=== PATIENT | male | born 1960 | race Asian ===

== ENCOUNTER 2024-10-18 14:45 | Inpatient (IN) | payer BC, MEDICARE, SELFPAY ==
[2024-10-18] VITALS (9 sets, daily range): BP systolic 103–126; BP diastolic 65–82; BMI 25.7; BMI 25.3
--- NOTE | 2024-10-18 09:57 | ED.GENMED ---
History of Present Illness
General
Chief Complaint: Rectal Bleeding
Source: patient and spouse
Exam Limitations: none
Time Seen by Provider: 10/18/24 09:48
History of Present Illness
History of Present Illness:
See MDM
Past History
Past History
ED Past Medical History: None
ED Past Surgical History: None
Social History
Tobacco: Non-smoker
Alcohol: None
Phy Exam
Physical Exam
Physical Exam:
See MDM
Course
Orders/Labs/Results
Orders:
Orders
10/18/24 09:56
IV Insert/Care/Rem.- Treatment PRN
Pantoprazole 80 mg/100 ml Nss [Protonix] 80 mg in 100 ml IV NOW
Pantoprazole [Protonix IV] 80 mg IV NOW STA
10/18/24 09:57
0.9% Sodium Chloride 1000 ml [Nss] 1,000 ml IV BOLUS
10/18/24 10:02
Type+Screen Urgent
Complete Blood Count/With Diff Urgent
Comprehensive Metabolic Panel Urgent
Lipase Urgent
PTT Urgent
Prothrombin Time Urgent
10/18/24 10:18
ABO2 Urgent
BBK Wristband Number:
Associate notified that ABO2 has been ordered: ATIFF-ER
Date: 10/18/24
Time: 10:09
Shank Cutter ID: [id number]
Abnormal Lab Results
10/18/24
10:02
RBC 4.04 L 10^6/uL
(4.70-6.10)
Hgb 12.8 L g/dL
(13.0-18.0)
Hct 38.3 L %
(39.0-52.0)
MCV 94.8 H fL
(80.0-94.0)
MCH 31.7 H pg
(27.0-31.0)
MPV 10.6 H fL
(7.4-10.4)
Neutrophils % 78.2 H %
(42.2-75.2)
Lymphocytes % 17.0 L %
(20.5-51.1)
Chloride 111 H mmol/L
(98-107)
BUN 41 H mg/dl
(9-20)
Glucose 175 H mg/dl
(70-99)
10/18/24 10:02
10/18/24 10:02
Vital Signs
Initial and Last Documented VS:
Initial Vital Signs
Temp Pulse Resp BP Pulse Ox
97.5 F 66 18 126/82 98
10/18/24 09:37 10/18/24 09:37 10/18/24 09:37 10/18/24 09:37 10/18/24 09:37
Last Documented Vital Signs
Temp Pulse Resp BP Pulse Ox
97.5 F 65 22 111/69 100
10/18/24 09:37 10/18/24 10:00 10/18/24 10:00 10/18/24 10:00 10/18/24 10:00
MDM/Problems Addressed
Differential Diagnosis Includes:
Note:
CHIEF COMPLAINT(S)
Dark stools
HISTORY OF PRESENT ILLNESS
The patient is a 64-year-old male presenting with approximately three days of dark stools. The patient denies abd pain but complains of feeling weak and fatigued. There is no history of previous bleeding, and the patient is not on any blood
thinners. The patient engaged in significant exercise in the heat two days prior, which may have contributed to his symptoms. He denies recent use of Pepto-Bismol or iron supplements. A rectal exam was performed, which confirmed melena. Vital signs
are stable, and the patient is not taking any routine medications other than seasonal allergies, which were not specified. The patient drinks alcohol but not excessively.
PHYSICAL EXAM
General: Well appearing and non-toxic
HEENT: protecting airway
Neck: appears supple
CV: No evidence of cyanosis
Resp: No accessory muscle use
Abd: Non-distended. Soft nontender
Rectal: Melanotic stool that is guaiac positive
Extremities: No deformities
Neuro: alert
Psych: Normal affect
Skin: Intact
PLAN
The plan includes initiating a proton pump inhibitor, such as pantoprazole, to reduce stomach acid production given the likely upper gastrointestinal source of bleeding. The patient will be admitted overnight for further observation and consultation
with the GI team. A schedule for endoscopy will be arranged to evaluate the source and extent of bleeding. In the meantime, the patient is to remain NPO (nothing by mouth) and receive intravenous fluids. Blood work will be conducted to assess for
anemia, and decisions regarding the timing of the endoscopy will be based on these results.
DIFFERENTIAL DIAGNOSIS
The Differential Diagnosis includes, in no particular order and is not limited to:
1. Upper gastrointestinal bleed
2. Gastric ulcer
3. Duodenal ulcer
4. Esophageal varices
5. Viviana-Castillo tear
6. Gastritis
7. Peptic ulcer disease
8. Medication-induced gastrointestinal bleeding
9. Hemorrhagic gastritis
10. Esophagitis
DISPOSITION
The patient was admitted to the hospital service for overnight observation and management in consultation with the gastroenterology team.
MEDICATION RECONCILIATION
Prescribed pantoprazole as a PPI to reduce stomach acid production and manage potential GI bleeding.
MEDICAL DECISION MAKING
1. Number & Complexity of Problems: Differential diagnosis considered includes an upper gastrointestinal bleed potentially due to a gastric or duodenal ulcer, among other causes such as esophageal varices, peptic ulcer disease, and others listed.
2. Data Reviewed: A hemoglobin lab value was reviewed, showing stability at 12.8, impacting decision-making regarding the patients management plan.
3. Risk: Admission and observation were deemed necessary given the presence of GI bleeding, although vitals were stable, requiring hospital-based care to manage symptom control and further investigate through endoscopy.
*Pulse Oximetry
SaO2: 98
Patient hypoxic: no
*Critical Care Note
Total Time (30-74mins, 75-104mins- exclusive of procedures): 33 min
comment:
The high probability of a clinically significant, sudden or life threatening deterioration of the GI system(s) required my full and direct attention, intervention and personal management. The aggregate critical care time was 33 minutes. This time is
in addition to time spent performing reported procedures but includes the following:
[x] Data Review and interpretation
[x] Patient assessment and monitoring of vital signs
[x] Documentation
[x] Medication orders and management
ED Attending Note
-
Portions of this chart may have been created with voice recognition software.� Occasional wrong word or��sound alike� substitutions may have occurred due to the inherent limitations of voice recognition software.
Discharge Plan
Departure
Patient Disposition: Admit
Date of Disposition: 10/18/24
Time of Disposition: 10:28
Admit to: Med/Surg
Presentation/result/management discussed w/ accepting MD/DO: Hospitalist
Discharge Problem:
Acute upper GI bleed
Referrals:
Stephen Arana MD [Family Provider, Family Practice]
Interventions
Interventions:
*Risk Screen - Suicide Last Done: 10/18/24 09:52
*General Assessment Last Done: 10/18/24 09:52
*Neglect/Abuse Screening Last Done: 10/18/24 09:52
*ED- Fall Risk Assessment Last Done: 10/18/24 09:52
*ED COVID-19 Vaccine History Last Done: 10/18/24 09:52
YE-Qbcqge-Xkeluuoyxp Assessment Last Done: 10/18/24 09:52
ED- Cardiac Assessment Last Done: 10/18/24 09:52
ED- Pulmonary Assessment Last Done: 10/18/24 09:52
Discharge Date and Time
Print Language: YORUBA
[2024-10-18 10:11] LABS: % Basophils 0.4 % (0-2); % Eosinophils 1.1 % (0-6); % Immature Granulocytes 0.4 % (0-0.5); % Monocytes 2.9 % (1.7-9.3); % Neutrophils 78.2 % (42.2-75.2); Absolute Eosinophils 0.1 10^3/uL (0-0.7); Absolute Lymphocytes 1.2 10^3/uL (1.2-3.4); Absolute Monocytes 0.2 10^3/uL (0.1-0.6); Absolute Neutrophils 5.7 10^3/uL (1.4-6.5); Hematocrit 38.3 % (39.0-52.0); Hemoglobin 12.8 g/dL (13.0-18.0); Mean Corp Hgb Conc. 33.4 g/dL (33.0-37.0); Mean Corpuscular Hgb 31.7 pg (27.0-31.0); Mean Corpuscular Volume 94.8 fL (80.0-94.0); Mean Platelet Volume 10.6 fL (7.4-10.4); Nucleated Red Blood Cells % 0 % (-); Platelet Count 159 10^3/uL (130-400); Red Blood Cell Count 4.04 10^6/uL (4.70-6.10); Red Cell Dist. Width 12.6 % (11.5-14.5); White Blood Cell Count 7.3 10^3/uL (4.8-10.8)
[2024-10-18] MEDS: PROTONIX IV 80 MG IV (10:15)
[2024-10-18] MEDS: PROTONIX 100 IV ×2 (10:15→20:26)
[2024-10-18] MEDS: NSS 1000 IV (10:17)
[2024-10-18 10:20] LABS: PT 13.5 Sec (11.4-14.6)
[2024-10-18 10:21] LABS: APTT 24.7 Sec (23.4-35.0)
[2024-10-18 10:23] LABS: ALT (SGPT) 16 U/L (0-50); AST (SGOT) 20 U/L (17-59); Albumin 4.2 g/dl (3.5-5.0); Alkaline Phosphatase 47 U/L (38-126); Blood Urea Nitrogen 41 mg/dl (9-20); Calcium 8.6 mg/dl (8.4-10.2); Carbon Dioxide 23 mmol/L (22-30); Chloride 111 mmol/L (98-107); Estimated Creatinine Clearance 82 ml/min; Glucose 175 mg/dl (70-99); Lipase 78 U/L (23-300); Potassium 4.6 mmol/L (3.5-5.1); Sodium 140 mmol/L (135-145); Total Bilirubin 0.7 mg/dl (0.2-1.3); Total Protein 6.8 g/dl (6.3-8.2); eGFR > 60.00
--- NOTE | 2024-10-18 13:00 | CON.GI ---
Consultation
-
Date/Time Consultation Requested: 10/18/2024
Date/Time Consultation Performed: 10/18/2024
Requesting Provider: ED
Performing Provider: Devi BROWN
Reason for Consultation: melena
Medical History
Chief Complaint / HPI
Chief Complaint: Dark stool/fatigue
History of Present Illness:
64-year-old male with no significant past medical history is admitted today with dark stool started last night. He had 3 large tarry looking BMs since then. He had an episode of vomiting last night which he claims was bilious. He felt weak and
fatigued this morning and came to ED. In ED rectal examination confirming melena. Vital stable. Denies any NSAIDs use or blood thinner. No prior EGD. Denies any abdominal pain/nausea/vomiting now. No prior EGD
Past Medical History
Past Medical History: None
Past Surgical History: None
Social History
Tobacco: Non-Smoker
Alcohol: None
Allergies / Home Medications
Allergy/AdvReac Type Severity Reaction Status Date / Time
No Known Allergies Allergy Unverified 10/18/24 09:39
�Medication �Instructions �Recorded
fexofenadine 180 mg tablet 180 mg PO DAILY PRN allergies 10/18/24
multivit,Ca,min-iron 8 mg-folic 1 tab PO DAILYPRN PRN supplement 10/18/24
acid 200 mcg-lycopene 600 mcg
tablet (Centrum Men)
Review of Systems
-
All other systems: A 12 pt ROS was Negative except as stated above in HPI
Vital Signs
Temp Pulse Resp BP Pulse Ox
97.5 F 62 12 105/68 100
10/18/24 09:37 10/18/24 11:15 10/18/24 11:15 10/18/24 11:00 10/18/24 11:15
Physical Exam
Exam
General: Well Developed and No Apparent Distress
Respiratory: Clear
Cardiac: S1/S2
GI: Soft, Non Tender, Non Distended and Normal Bowel Sounds
Neuro: AO x 3
Results
WBC 7.3 10^3/uL (4.8-10.8) 10/18/24 10:02
Hgb 12.8 g/dL (13.0-18.0) L 10/18/24 10:02
Hct 38.3 % (39.0-52.0) L 10/18/24 10:02
MCV 94.8 fL (80.0-94.0) H 10/18/24 10:02
Plt Count 159 10^3/uL (130-400) 10/18/24 10:02
Absolute Neuts (auto) 5.7 10^3/uL (1.4-6.5) 10/18/24 10:02
PT 13.5 Sec (11.4-14.6) 10/18/24 10:02
INR 1.00 10/18/24 10:02
APTT 24.7 Sec (23.4-35.0) 10/18/24 10:02
Sodium 140 mmol/L (135-145) 10/18/24 10:02
Potassium 4.6 mmol/L (3.5-5.1) 10/18/24 10:02
Chloride 111 mmol/L (98-107) H 10/18/24 10:02
Carbon Dioxide 23 mmol/L (22-30) 10/18/24 10:02
BUN 41 mg/dl (9-20) H 10/18/24 10:02
Creatinine 0.9 mg/dL (0.7-1.3) 10/18/24 10:02
Calcium 8.6 mg/dl (8.4-10.2) 10/18/24 10:02
Total Bilirubin 0.7 mg/dl (0.2-1.3) 10/18/24 10:02
AST 20 U/L (17-59) 10/18/24 10:02
ALT 16 U/L (0-50) 10/18/24 10:02
Alkaline Phosphatase 47 U/L (38-126) 10/18/24 10:02
Lipase 78 U/L (23-300) 10/18/24 10:02
Diagnostic Image Results:
Prior GI Procedures:
EGD: None
Colonoscopy: 3 years back at outside facility and was reassured
Assessment / Plan
-
64-year-old male admitted with melena x 3 . Episode of bilious vomiting but currently resolved. No NSAIDs or blood thinner use. No prior EGD. ED �vital stable. Hb 12.8. No prior labs available to compare. BUN 41. Liver test/platelets normal
-- Melena/upper GI bleeding -possible differential-peptic ulcer disease versus severe gastritis versus esophagitis etc.
plan
Clear liquid diet
N.p.o. after midnight
Continue monitor H&H
Continue Protonix drip
EGD tomorrow
Total Time Spent with Patient (in minutes): 55
-
-
Thank you for consultation and allowing me to participate in the patient's care. Please call the marketing operations analyst GI physician during the after hours with any questions or concerns.
--- NOTE | 2024-10-18 14:37 | HPS.HSE ---
Family Physician
-
Family Physician: Stephen Arana
Chief Complaint
-
Melena
History of Present Illness
Patient is a 63-year-old male with past medical history of seasonal allergy, occasional alcohol use came to ER with new onset of black stool x3 from night. Associated with this patient felt dizzy and fatigued no syncope. Patient denies of having
any history of GI bleeding in the past. No reported history of reflux/peptic ulcer disease/NSAID use. Denies any history of smoking, very occasional alcohol use only. Associated with black stool patient did not have any reported dysphagia/weight
loss/night sweats//abdominal pain/nausea/vomiting/fever.
Medical History
Past Medical History
Past Medical History: Reports Other
Additional Past Medical History:
Seasonal allergies
Past Surgical History: Reports None
Social History
Tobacco: Non-smoker
Alcohol: Occasional
Drug: None
Personal:
Living: With Family
Family History
Family History: Not pertinent
Allergies / Home Medications
Allergies reflects when Allergies were last updated in [facility].
Home Medications with original date entered in [facility]
Allergy/Medication List:
Allergies
Allergy/AdvReac Type Severity Reaction Status Date / Time
No Known Allergies Allergy Unverified 10/18/24 09:39
Home Medications
fexofenadine 180 mg tablet 180 mg PO DAILY PRN allergies 10/18/24
multivit,Ca,min-iron 8 mg-folic acid 200 mcg-lycopene 600 mcg tablet (Centrum Men) 1 tab PO DAILYPRN PRN supplement 10/18/24
Review of Systems
-
A 12 point ROS was completed and negative except as noted: Yes
Physical Exam
Vital Signs
Vital Signs
Temp Pulse Resp BP Pulse Ox
97.5 F 59 11 106/78 100
10/18/24 09:37 10/18/24 13:15 10/18/24 13:15 10/18/24 13:00 10/18/24 13:15
Physical Exam
General: No Apparent Distress
HEENT: Atraumatic; No Oxygen
Respiratory: Clear
Cardiac: S1/S2 and Regular Rhythm; No Murmur or Rub
GI: Soft, Non Tender, Non Distended and Normal Bowel Sounds; No Organomegaly
Rectal: Deferred by Provider
Musculoskeletal: No Clubbing, No Cyanosis and No Edema
Skin: No Rash
Neuro: Nonfocal/grossly intact
Laboratory Results
-
10/18/24 10:02
10/18/24 10:02
Laboratory Results
PT 13.5 Sec (11.4-14.6) 10/18/24 10:02
INR 1.00 10/18/24 10:02
APTT 24.7 Sec (23.4-35.0) 10/18/24 10:02
Total Bilirubin 0.7 mg/dl (0.2-1.3) 10/18/24 10:02
AST 20 U/L (17-59) 10/18/24 10:02
ALT 16 U/L (0-50) 10/18/24 10:02
Alkaline Phosphatase 47 U/L (38-126) 10/18/24 10:02
Lipase 78 U/L (23-300) 10/18/24 10:02
Impression/Plan
-
1. Upper GI bleed/melena
Presumed acute blood loss anemia
-Patient having some dizziness/fatigue
-Reported 3 black stools yesterday
-Hemoglobin of 12.8 with MCV of 95, no reported history of anemia with annual blood work in the past
-GI involved in care and patient is planned to get EGD tomorrow in the morning
-Maintain on clear liquid diet for the time being, n.p.o. past midnight
-Maintain on IV Protonix/IV fluid
2. Elevated Blood glucose
-possible post-meal blood draw
-check a1c on morning labs
DVTPPX - scd
Full code
Total time spent : 77 mins
I personally saw and examined the patient.
I have reviewed all diagnostic interpretations and treatment plans as written.
Time includes patient management by me, time spent at the patients bedside, time to review lab and imaging results, discussing patient care, documentation in the medical record, and time spent with the family or caregiver and discussing care plan
with RN/Consultants.
[2024-10-18] MEDS: LR 1000 IV (17:08)
--- NOTE | 2024-10-18 17:15 | PTCARENOTE ---
Received pt from ED at 1630. pt walked from stretcher to bed. Pt was orientated to unit/room and assessed. VAT notified that pt needs two IV's and will be coming shortly. at bedside and pt has no current complaints. Plan of care ongoing.
[2024-10-18 22:43] LABS: Hematocrit 33.3 % (39.0-52.0); Hemoglobin 11.6 g/dL (13.0-18.0); Mean Corp Hgb Conc. 34.8 g/dL (33.0-37.0); Mean Corpuscular Hgb 32.6 pg (27.0-31.0); Mean Corpuscular Volume 93.5 fL (80.0-94.0); Mean Platelet Volume 10.6 fL (7.4-10.4); Platelet Count 152 10^3/uL (130-400); Red Blood Cell Count 3.56 10^6/uL (4.70-6.10); Red Cell Dist. Width 12.6 % (11.5-14.5); White Blood Cell Count 6.7 10^3/uL (4.8-10.8)
[2024-10-19] VITALS (7 sets, daily range): BP systolic 12–130; BP diastolic 64–83
[2024-10-19] MEDS: PROTONIX 100 IV (06:01)
[2024-10-19] MEDS: LR 1000 IV (07:45)
[2024-10-19 08:58] LABS: Glycohemoglobin (HgbA1c) 5.4 % (4.0-5.6)
--- NOTE | 2024-10-19 10:49 | CM ---
Alert awake oriented patient who lives with his in a 2 story home with 2 steps to enter and 10 steps to bed bathroom. He is independent in driving and all ADLs. No adaptive devices.Offered VN pt declined need. will drive him home.
No VN/SNF hx.
Pharmacy [facility]
PCP Dr Oseguera
PLAN Home no needs
--- NOTE | 2024-10-19 13:09 | W.PN.HOSP.TC ---
Today's Communication/Plan
-
d/c homre
Assessment / Plan
Assessment / Plan
1. Upper GI bleed/melena
Presumed acute blood loss anemia
- Patient having some dizziness/fatigue before admission
- Reported 3 black stools before admit
- Hemoglobin of 11.6 MCV 93.5 today.
- EGD showing pyloric ulcer nonbleeding biopsy taken to rule out H. pylori
- Patient recommended to be maintained on Protonix twice daily for 12 weeks
- GI arranged to follow-up in office in 3 months for f/u egd
2. Elevated Blood glucose
- possible post-meal blood draw
- A1c 5.4
DVTPPX - scd
Full code
More than 30 minutes spent in discharge including
Final examination of the patient
Summarizing hospital stay
Instructions for continuing care to all relevant caregivers
Preparation of discharge records, prescriptions, and referral forms
Total time spent (in minutes): 39 mins
Anticipated Discharge: Today
Subjective/Interval History
-
Date of Service: October 19, 2024
No new issues overnight
Denies abdominal pain/nausea/vomiting
Objective Data
-
Vital Signs:
Vital Signs
Temp Pulse Resp BP Pulse Ox
97.4 F 52 18 130/71 99
10/19/24 10:48 10/19/24 10:48 10/19/24 10:48 10/19/24 10:48 10/19/24 10:48
I&O
10/18/24 10/19/24 10/20/24
06:59 06:59 06:59
Intake Total 240 / 240
Balance 240 / 240
Review of Systems
-
Respiratory: Reports No Symptoms
Cardiac: Reports No Symptoms
Abdomen/GI: Reports No Symptoms
Physical Exam
-
General: No Apparent Distress and Comfortable
HEENT: Negative Oxygen
Neuro: Awake, Alert, Oriented, No Motor Deficits and Nonfocal/Grossly Intact
Psych: Calm
--- NOTE | 2024-10-19 13:26 | W.DCSUMMARY ---
Discharge Summary
Discharge Data
Date of Admission: 10/18/24
Date of Discharge: 10/19/24
-
Pending Results: No
Hospital Course
Discharging Physician : Dr Ryan Quevedo
Disposition : Home
Primary care physician : Dr Stephen Arana
Principal Discharge diagnosis :
Upper gastrointestinal bleed/melena
Peptic ulcer disease involving prepylorus
Acute blood loss anemia
Chronic Discharge diagnosis :
Ocassional alcohol use
Hospital Course :
Patient is a 64-year-old male with no significant past medical history came to ER with new onset of episodes of black stools with associated fatigue/lethargy. Patient was tested positive for blood in stool in ER and was noted to be anemic. GI was
involved in care and there was concern of patient having possible undiagnosed peptic ulcer disease and upper GI bleed from it. Patient was maintained n.p.o. and started on IV Protonix. Patient had EGD next day with patient found to have
nonbleeding gastric ulcer in prepyloric area. The largest dimension was 5 mm. Biopsies were taken. Patient was cleared to be discharged home with 3 months of twice daily Protonix therapy and plan to follow-up in GI office with repeat endoscopy.
Important imaging findings :
None
Procedure findings :
None
Discharge Plan
-
Patient Disposition: Home (Routine Discharge)
Discharge Diagnosis/Procedures: Peptic ulcer disease , Melena, Blood loss anemia
Condition: Fair
Diet: Regular
Additional Diets: Avoid alcohol
Activity: As tolerated
Driving Restrictions: As prior to admission
Bathing Restrictions: OK to Shower
Blood Work: CBC in 4-6 weeks with primary care office.
Referrals:
Rosaura Rivero MD [Active, Gastroenterology]
Referral Note: 11/30 at 12:00 Dr Crowell [id number] [facility]
Stephen Arana MD [Family Provider, [facility]] - in one week
Prescriptions:
New
pantoprazole 40 mg tablet,delayed release (DR/EC)
40 mg PO BID Qty: 60 2RF
Continued
fexofenadine 180 mg Tablet
180 mg PO DAILY PRN (Reason: allergies)
Centrum Men 8 mg iron- 200 mcg-600 mcg Tablet
1 tab PO DAILYPRN PRN (Reason: supplement)
Discharge Orders:
Discharge Patient (As Directed); Ordered 10/19/24
Ordered By: Ryan Quevedo
Discharge Date and Time
Discharge Date/Time: 10/19/24 11:22
Print Language: GREENLANDIC
== END 2024-10-19 11:22 | disposition home or self-care (01) | DRG 378 ==
LOC: 3 WEST ACU 14:45
PROVIDERS: Internal Medicine Gastroenterology; ADMITTING PHYSICIAN Hospitalist; CONSULT PHYSICIAN Internal Medicine Gastroenterology; EMERGENCY PHYSICIAN Student in an Organized Health Care Education/Training Program; FAMILY PHYSICIAN Family Medicine
PROC: 0DB68ZX Excision of Stomach, Via Natural or Artificial Opening Endoscopic, Diagnostic (ICD-10-PCS; 2024-10-19)
DX: K25.4 Chronic or unspecified gastric ulcer with hemorrhage (principal); D62 Acute posthemorrhagic anemia
CPT/HCPCS: 88305; 80053; 83036; 83690; 85025; 85027; 85610; 85730; 86850; 86900; 86901; 88342; 88365; 96365; 96366; 99291

== ENCOUNTER 2025-01-03 06:24 | Day surgery (SDC) | payer BC, SELFPAY | END 2025-01-03 11:34 | disposition home or self-care (01) | LOC: GI 06:24 | PROVIDERS: ATTENDING PHYSICIAN Internal Medicine Gastroenterology | DX: K29.50 Unspecified chronic gastritis without bleeding (principal); K31.89 Other diseases of stomach and duodenum; R12 Heartburn | CPT/HCPCS: 43239; 88305; 88342 ==